=== PATIENT | female | born 1990 | race Two or more races ===

== ENCOUNTER 2021-01-13 08:40 | Emergency (ER) | payer SELFPAY ==
[~2021-01-13] VITALS: Ht 180.3 cm; Wt 70.0 kg
[2021-01-13] MEDS ORDERED: methylPREDNISolone SOD SUCC PF 125 MG/2 ML VIAL. IV ONE (09:15)
--- NOTE | 2021-01-13 09:26 | RAD ---
EXAM: Chest, single view. HISTORY: Shortness of air. COMPARISON: None. FINDINGS: A frontal view of the chest is obtained. There is no infiltrate, pleural effusion or pneumo thorax. The heart is normal in size. IMPRESSION: No acute pulmonary finding. Electronically signed by: Daksha Fam MD (01/13/2021 9:23 AM) [id number]
[2021-01-13] MEDS: IPRATRPIUM/ALBUTEROL 0.5/2.5MG 3 ML NEBU. NEB ONE ×3 (09:39→09:40)
--- NOTE | 2021-01-13 09:40 | PHYS DOC ---
Past Medical History Past Medical History: No Pertinent History Past Surgical History: Smoking Status: Never Smoker Alcohol Use: None General Adult EDM: Chief Complaint: SHORTNESS OF BREATH HPI: HPI: 30 yo F at 28 wks gestation. presents to the ED with complaints of increased work of breathing, shortness of breath, nonproductive cough with "rib pain," no relief with fluticasone given by her physician at [facility] x2 days. Patient states she had "really bad" asthma when she was a kid and this feels similar. Has a h/o seasonal allergies. Pt is south korean speaking, not fluent in occitan but able to explain sxs, field sales executive services offered. Patient gave consent to talk to her over the phone who assisted with translating. Patient takes no routine prescribed daily medications but is using her aunts inhaler-unsure what the medication is. No known drug allergies. No history of recent surgeries, traumas or operations. No history of PE. Review of Systems: Review of Systems: Constitutional: Denies fever or chills. [] Eyes: Denies change in visual acuity. [] HENT: Denies nasal congestion or sore throat. [] Respiratory: Denies hemoptysis or productive cough Cardiovascular: Denies chest pain or edema or syncope GI: Denies abdominal pain, nausea, vomiting, bloody stools or diarrhea. [] : Denies dysuria, hematuria, vaginal bleeding Musculoskeletal: Denies back pain or joint pain CVA tenderness or lower extremity swelling Integument: Denies rash or neck stiffness Neurologic: Denies headache, focal weakness or sensory changes. [] Endocrine: Denies polyuria or polydipsia. [] Lymphatic: Denies swollen glands. [] Psychiatric: Denies depression or anxiety. [] Heart Score: C/O Chest Pain: No Risk Factors: Risk Factors: DM, Current or recent (<one month) smoker, HTN, HLP, family history of CAD, obesity. Risk Scores: Score 0 - 3: 2.5% MACE over next 6 weeks - Discharge Home Score 4 - 6: 20.3% MACE over next 6 weeks - Admit for Clinical Observation Score 7 - 10: 72.7% MACE over next 6 weeks - Early Invasive Strategies Current Medications: Current Medications Medications (Trade) Dose Ordered Sig/Dakota Start Time Stop Time Status Last Admin Dose Admin Albuterol/ Ipratropium (Duoneb) 3 ml 1X ONCE 01/13/21 09:15 01/13/21 09:29 DC Methylprednisolone Sodium Succinate (SOLU-Medrol 125MG VIAL) 125 mg 1X ONCE 01/13/21 09:15 01/13/21 09:29 DC Allergies: Allergies: Allergies Coded Allergies Type Severity Reaction Last Updated Verified No Known Drug Allergies 01/13/21 No Physical Exam: PE: Constitutional: Well developed, well nourished, no acute distress, non-toxic appearance. HENT: Normocephalic, atraumatic, Eyes: EOMI, conjunctiva normal, no discharge. Neck: Normal range of motion, supple, Cardiovascular: S1/2 present, regular rhythm Lungs & Thorax: Speaking in full sentences, bilateral equal chest rise, mild tachypnea & sternal retractions with speech, inspiratory and expiratory diffuse wheezing on exam no labored speech - moving air in all four lung solis Abdomen: soft, no tenderness, gravid with both fundus well above umbilicus, large 6 x4cm reducible umbilical hernia Skin: Warm, dry, no erythema, no rash. [] Back: No tenderness, no CVA tenderness. [] Extremities: No tenderness, no cyanosis, no lower extremity edema Neurologic: Alert and oriented X 3, normal motor function, normal sensory function, no focal deficits noted. [] Psychologic: Affect normal, judgement normal, mood normal. [] Current Patient Data: Vital Signs: Vital Signs Date Time Temp Pulse Resp B/P (MAP) Pulse Ox O2 Delivery O2 Flow Rate FiO2 01/13/21 08:53 98.1 117 22 102/70 (81) 96 98.1 EKG: EKG: Sinus rhythm 90 bpm, no axis deviation, normal intervals, T wave inversion V2, no ST elevations or ST depressions, no active chest pain, wheezing on exam Radiology/Procedures: Radiology/Procedures: []IMAGING REPORT Signed PATIENT: KYMBERLY LANGACCOUNT: [id number] : 1990 LOCATION: ER AGE: 30 SEX: F EXAM STATUS: REG ER ORD. PHYSICIAN: MAXINE ENRIQUEZ DO REASON: soa PROCEDURE: PORTABLE CHEST 1V EXAM: Chest, single view. HISTORY: Shortness of air. COMPARISON: None. FINDINGS: A frontal view of the chest is obtained. There is no infiltrate, pleural effusion or pneumothorax. The heart is normal in size. IMPRESSION: No acute pulmonary finding. Electronically signed by: Daksha Crawford MD (01/13/2021 9:23 AM) [id number] DICTATED and SIGNED BY: DAKSHA CRAWFORD MD DATE: 01/13/21 [id number] 0 Course & Med Decision Making: Course & Med Decision Making Pertinent Labs and Imaging studies reviewed. (See chart for details) Concern for asthma exacerbation in the setting of second trimester , no vaginal bleeding, urinary complaints, leg swelling back or chest pain. States her sxs resemble asthma. Tachycardic on arrival. Wheezing significantly improved with 3 duoneb txs and solumedrol. Tachycardia resolved and pulse ox improved. Patient gave me consent to speak to her over the phone who is [id number] assisted with translating discharge instructions to patient. He understands that we did not rule out a life-threatening pulmonary embolus and if patient's shortness of breath should worsen or not improve (or if pt should have upper chest of back pain) with outpatient management to return to the ED immediately. Educated on steroid and inhaler use. Will discharge home with strict ED return precautions were given for increased work of breathing, worsening shortness of breath, hemoptysis, chest pain, neurologic deficits or syncope. Encouraged urgent outpatient follow-up with PMD in 24 to 40 hours for r eevaluation, OB referral given. Life-threatening processes were considered but are low suspicion at this time, given history, physical exam and ED workup. Pt was educated on all prescription medications and adverse effects. All patient's questions were answered and pt was stable at time of discharge. Life/limb-threatening differential includes but is not limited to, ACS, dysrhyt hmia, pneumothorax or hemothorax, pulmonary embolus, pneumonia, bronchoconstriction, pulmonary edema, angioedema, epiglottitis, tracheitis, Ethan's angina, RPA/PODIATRIC TECHNICIAN, anaphylaxis, angioedema, cardiac tamponade or murmurs, pericarditis, myocarditis, poisoning or toxicity, sepsis or autoimmune/neurologic disease. I spoken with the patient and her caregivers. I explained the patient's condition, diagnoses and treatment plan based on the information available to me at this time. I have answered the patient and her caregiver's questions and addressed any concerns. The patient and her caregivers have a good understanding of patient's diagnosis, condition and treatment plan as can be expected at this point. Vital signs have been stable. Patient's condition is stable and appropriate for discharge from the emergency department. Patient will pursue further outpatient evaluation with primary care physician or other designated or consulting physician as outlined in the discharge instructions. The patient and/or caregivers are agreeable to this plan of care and follow-up instructions have been explained in detail. The patient and/or caregivers have received these instructions in written form and have expressed an understanding of the discharge instructions. The patient and/or caregivers are aware that any significant change of condition or worsening of symptoms should prompt immediate return to this or the closest emergency department or call to 911. Nito Disclaimer: Dragon Disclaimer: This electronic medical record was generated, in whole or in part, using a voice recognition dictation system. Departure Departure Impression: Primary Impression: Asthma exacerbation, mild Disposition: 01 HOME / SELF CARE / HOMELESS Condition: STABLE Referrals: NO PCP (PCP) Shahzad un seguimiento con conti mdico de atencin primaria en 24 a 48 horas para sofi reevaluacin o FOLLOW UP WITH FAMILY MEDICINE: Family Medicine Address: [address] [facility], [address] Patient Instructions: Asthma Attacks, Prevention, Asthma, Adult Additional Instructions: No se excluy la embolia pulmonar potencialmente mortal. Regrese a la lisette de urgencias si se desmaya, pierde el conocimiento o desarrolla y empeora las dificultades para respirar o toser aimee. Seguimiento con conti obstetra o [facility] Address: [address] [facility], [address] [address] NSTRUCCIONES GENERALES DE RON DEL DEPARTAMENTO DE EMERGENCIAS [place] por venir al Departamento de Emergencias (ED) del [facility] hoy y confiando en nosotros con conti cuidado. Confiamos que haya tenido sofi experiencia positiva en nuestra Emergencia Departamento. Si desea hablar con la gerencia del departamento, puede llamar al Director al [phone]. ALEJANDRA INSTRUCCIONES DE SEGUIMIENTO SON LAS SIGUIENTES: 1. Tiene un mdico privado? Si no tiene un mdico privado, solicite un lista de recursos de mdicos o clnicas que pueden ayudarlo con la atencin de seguimiento. 2. El Physicain de Emergencias leiva interpretado alejandra radiografas. El especialista en rashid X tambin revselos. Si hay un cambio en los resultados, se le notificar en 48 horas cuando en todo posible. 3. Se leiva realizado sofi prueba de laboratorio o un cultivo, se revisarn alejandra resultados y se le notificado si necesita un cambio de tratamiento. INSTRUCCIONES E INFORMACIN ADICIONALES: 1. Conti atencin hoy leiva sido supervisada por un mdico especialmente capacitado en emergencias. cuidado. Muchos problemas requieren ms de sofi evaluacin para un diagnstico completo y tratamiento. Le recomendamos que programe conti kari de seguimiento segn lo recomendado para asegurar un tratamiento completo de conti enfermedad o lesin. Si no puede obtener un seguimiento cuidado y contina teniendo un problema, o si conti condicin empeora, le recomendamos que Regrese al servicio de urgencias. 2. No podemos determinar con seguridad conti condicin por telfono ni podemos karuna consejos mdicos slidos por telfono. Por estas razones de seguridad, si llama al mdico consejo, le pediremos que acuda al servicio de urgencias para sofi evaluacin adicional. 3. Si tiene alguna pregunta con respecto a estas instrucciones de ron, llame al servicio de urgencias al [phone]. INFORMACIN DE SEGURIDAD: En ankita de la seguridad, el bienestar y la prevencin de lesiones; te animamos a que uses tu cinturn de seguridad, si fuma; bastante fumador, y alentamos a la giovanny a usar un erwin protector para andar en bicicleta y otros eventos deportivos que presentan un mayor riesgo de lesiones en la geovanna. SI ALEJANDRA SNTOMAS EMPEORAN O SE DESARROLLAN NUEVOS SNTOMAS, O TIENE PREOCUPACIONES ACERCA DE CONTI CONDICIN; O SI CONTI CONDICIN EMPLEA MIENTRAS ESPERA CONTI KARI DE SEGUIMIENTO; YA SEA COMUNQUESE CON CONTI MDICO DE CUIDADO PRIMARIO, EL MDICO CUYO NOMBRE Y NMERO LE DIERON, O REGRESE INMEDIATAMENTE AL ED. Scripts Albuterol Sulfate (VENTOLIN HFA INHALER) 18 Gm Hfa.aer.ad 2 PUFF INH QID for FOR ASTHMA, #1 INHALER 0 Refills Prov: MAXINE ENRIQUEZ DO 01/13/21 Prednisone (PREDNISONE) 20 Mg Tablet 2 TAB PO DAILY for 4 Days, #8 TAB start 01/14/21 Prov: MAXINE ENRIQUEZ DO 01/13/21 MAXINE ENRIQUEZ DO Jan 13, 2021 09:40
[2021-01-13] MEDS ORDERED: PRED20TA PO (11:55)
[2021-01-13] MEDS ORDERED: VENTOLIN HFA18 GM INH (11:55)
[2021-01-13 12:04] VITALS: BP 100/62
== END 2021-01-13 12:38 | disposition home or self-care (01) ==
LOC: ER 08:40
DX: O99.513 Diseases of the respiratory system complicating pregnancy, third trimester (principal); J45.901 Unspecified asthma with (acute) exacerbation; Z3A.28 28 weeks gestation of pregnancy
CPT/HCPCS: 71045; 94640; 99285-25